=== PATIENT | female | born 1945 ===

== ENCOUNTER 2018-09-10 07:22 | Day surgery (SDC) | payer MEDICARE, OTHER ==
[~2018-09-10] VITALS: Ht 162.6 cm; Wt 92.2 kg
[~2018-09-10 07:22] MED LIST: BUPIVACAINE/PF 0.25% ONE
[2018-09-10] MEDS ORDERED: AMLO10TA8 PO (07:53)
[2018-09-10] MEDS ORDERED: CYCL-259 PO (07:53)
[2018-09-10] MEDS ORDERED: RANI150C PO (07:53)
[2018-09-10] MEDS ORDERED: NABU500T PO (07:54)
[2018-09-10] MEDS ORDERED: LEVO50TA5 PO (07:54)
[2018-09-10] MEDS ORDERED: ALBU8.5H8 INH (07:59)
[2018-09-10] MEDS ORDERED: MOME13HF PO (07:59)
[2018-09-10 08:00] VITALS: BP 159/84
[2018-09-10] MEDS ORDERED: LACTATED RINGERS 1,000 ML IV SCH (08:44)
[2018-09-10] MEDS ORDERED: FENTANYL PF 100 MCG/2ML ONE (09:01)
[2018-09-10] MEDS ORDERED: MIDAZOLAM 1 MG/ML, 2ML ONE (09:01)
[2018-09-10 09:07] LABS: MEAN CORPUSCULAR HEMOGLOBIN 28.4 pg (27.0-34.8); MEAN CORPUSCULAR HGB CONC 32.9 g/dL (32.4-35.8); MEAN CORPUSCULAR VOLUME 86.1 fL (80-100); MEAN PLATELET VOLUME 7.9 fL (7.4-10.4); PLATELET COUNT 318 x10^3/uL (130-400); RED CELL DISTRIBUTION WIDTH 15.4 % (9.6-15.2)
[2018-09-10 09:17] LABS: INTERNATIONAL NORMALIZED RATIO 1.05 (0.93-1.1)
[2018-09-10 09:19] LABS: ALBUMIN 3.7 g/dL (3.4-5.0); CALCIUM 8.8 mg/dL (8.5-10.1)
[2018-09-10 09:22] LABS: ALANINE AMINOTRANSFERASE 19 U/L (12-78); ALKALINE PHOSPHATASE 104 U/L (45-117); BILIRUBIN,TOTAL 1.1 mg/dL (0.2-1.0); CREATININE 0.92 mg/dL (0.55-1.02); TOTAL PROTEIN 7.4 g/dL (6.4-8.2)
[2018-09-10 09:24] LABS: ANION GAP 7 mmol/L (5-15)
[2018-09-10 09:30] LABS: MD YES
[2018-09-10 09:32] LABS: BAND#(MANUAL) 0.12 x10^3/uL; BANDS%(MANUAL) 1 % (0-7); EOS#(MANUAL) 0.23 x10^3/uL (0.0-0.4); EOS% (MANUAL) 2 % (1-7); LYMPH#(MANUAL) 2.67 x10^3/uL (1-3.4); LYMPHS% (MANUAL) 23 % (22-44); MONOS#(MANUAL) 0.58 x10^3/uL (0.3-2.7); MONOS% (MANUAL) 5 % (2-9); SEGS% (MANUAL) 69 % (42-75)
[2018-09-10 09:33] LABS: <PLATELET ESTIMATE> ADEQUATE; <PLT MORPHOLOGY> NORMAL PLT MORPH; <RBC MORPHOLOGY> NORMAL
[2018-09-10 09:34] LABS: CHLORIDE 113 mmol/L (98-107)
[2018-09-10] MEDS ORDERED: SUCCINYLCHOLINE 20 MG/ML, 10ML ONE (10:22)
[2018-09-10] MEDS ORDERED: SUGAMMADEX 200 MG/2 ML IVPush ONE (10:22)
[2018-09-10] MEDS ORDERED: ONDANSETRON 2MG/ML, 2ML ONE (10:22)
[2018-09-10] MEDS ORDERED: PROPOFOL 10 MG/ML, 20ML ONE (10:22)
[2018-09-10] MEDS ORDERED: DEXAMETHASONE 4 MG/ML, 1ML ONE (10:22)
[2018-09-10] MEDS ORDERED: ROCURONIUM 10MG/ML,5ML ONE (10:22)
[2018-09-10] MEDS ORDERED: LABETALOL 5MG/ML, 20ML IV PRN (12:00)
[2018-09-10] MEDS ORDERED: MEPERIDINE/PF 25MG/0.5ML IVPush PRN (12:00)
[2018-09-10] MEDS ORDERED: METOCLOPRAMIDE 5 MG/ML, 2ML IV PRN (12:00)
[2018-09-10] MEDS ORDERED: FENTANYL PF 100 MCG/2ML IV PRN (12:00)
[2018-09-10] MEDS ORDERED: ONDANSETRON 2MG/ML, 2ML IVPush PRN (12:00)
[2018-09-10] MEDS ORDERED: KETOROLAC 30 MG/1 ML IV PRN (12:00)
[2018-09-10] MEDS ORDERED: OXYcodone 5 MG/5 ML ORAL.SOL UDC PO PRN (12:00)
[2018-09-10] MEDS ORDERED: ALBUTEROL SULFATE 2.5 MG/3 ML NPPB PRN (12:00)
[2018-09-10] MEDS ORDERED: PROMETHAZINE 25 MG/ML, 1ML IV PRN (12:00)
[2018-09-10] MEDS ORDERED: hydrALAzine 20 MG/ML, 1ML IV PRN (12:00)
[2018-09-10] MEDS ORDERED: HYDROmorphone 1 MG/ML, 1ML INJ IV PRN (12:00)
== END 2018-09-10 13:10 | disposition home or self-care (01) ==
LOC: OUT 07:22
PROVIDERS: ATTEND Specialist
DX: N93.9 Abnormal uterine and vaginal bleeding, unspecified (principal); D36.7 Benign neoplasm of other specified sites; I10 Essential (primary) hypertension; E03.9 Hypothyroidism, unspecified; J45.909 Unspecified asthma, uncomplicated; N95.0 Postmenopausal bleeding; N88.9 Noninflammatory disorder of cervix uteri, unspecified; Z79.01 Long term (current) use of anticoagulants; Z87.39 Personal history of other diseases of the musculoskeletal system and connective tissue
CPT/HCPCS: 36415; 58120; 71045; 80053; 85025; 85610; 85730; 88305; 93005; J0330; J1100; J2250; J2405; J2704; J3010; J7120; J3490